=== PATIENT | female | born 2000 | race American Indian/Alaskan Native ===

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

== ENCOUNTER 2018-04-05 13:22 | Emergency (ER) | payer MEDICAID, SELFPAY ==
[2018-04-05 13:11] VITALS: BP 131/71
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
[~2018-04-05 13:22] MED LIST changes: +Acetaminophen 325 MG Tab PO ONE; -Acetaminophen 325 MG Tab PO PRN; +Bacitracin Oint 1 GM U/D Packet TOP ONE; -Carboprost Tromethamine 250 MCG/1 ML Amp IM PRN; -Lactated Ringers 500 ML IV ONE; +Lidocaine 1% 30 ML SDV INJECT ONE; -Lidocaine 1% 30 ML SDV INJECT PRN; -Methylergonovine 0.2 MG/1 ML Amp IM PRN; -Misoprostol 400 MCG (4 X 100 MCG TAB) RECTAL PRN; -Ondansetron 4 MG/2 ML SDV IV PRN; -Sodium Chloride 0.9% 10 ML Syringe FLUSH PRN
== END 2018-04-05 13:38 | disposition home or self-care (01) ==
LOC: DL.ED 13:22
DX: S01.81XA Laceration without foreign body of other part of head, initial encounter (principal); S50.11XA Contusion of right forearm, initial encounter; Y04.8XXA Assault by other bodily force, initial encounter; Y07.03 Male partner, perpetrator of maltreatment and neglect
CPT/HCPCS: 12013; 70450; 70486; 72125; 73090; 99284; A9270; J2001; 12011

== ENCOUNTER 2020-01-13 06:05 | Inpatient (IN) | payer MEDICAID ==
[~2020-01-13 06:05] MED LIST changes: -Acetaminophen 325 MG Tab PO ONE; +Acetaminophen 325 MG Tab PO PRN; -Bacitracin Oint 1 GM U/D Packet TOP ONE; +Carboprost Tromethamine 250 MCG/1 ML Amp IM PRN; +Citric Acid/Sodium Citrate Solution 30 ML Cup PO ONE; +Docusate Sodium 100 MG Cap PO PRN; -Lidocaine 1% 30 ML SDV INJECT ONE; +Methylergonovine 0.2 MG/1 ML Amp IM PRN; +Misoprostol 400 MCG (4 X 100 MCG TAB) RECTAL PRN; +Naloxone 2 MG/2 ML Syringe IVPUSH PRN; +Ondansetron 4 MG/2 ML SDV IVPUSH PRN; +Oxytocin/Normal Saline 30 UNIT/500 ML BAG IV SCH; +Tranexamic Acid 1,000 MG in Sodium Chloride 0.9% 100 ML IV PRN; +ceFAZolin 2 GM in Premix Bag 1 BAG IV ONE; +diphenhydrAMINE 50 MG/ML SDV IVPUSH PRN; +ePHEDrine 50 MG/ML SDV IVPUSH PRN
[2020-01-13] MEDS: Lactated Ringers 1,000 ML IV SCH ×2 (06:20→06:49)
[2020-01-13] MEDS ORDERED: Oxytocin/Normal Saline 60 UNIT/1,000 ML BAG ONE (07:04)
[2020-01-13] MEDS ORDERED: Citric Acid/Sodium Citrate Solution 30 ML Cup ONE (07:15)
[2020-01-13] MEDS ORDERED: Misoprostol 400 MCG (4 X 100 MCG TAB) ONE (08:04)
[2020-01-13] MEDS ORDERED: Methylergonovine 0.2 MG/1 ML Amp ONE (08:04)
--- NOTE | 2020-01-13 08:13 | OBOUT ---
DATE: 01/13/2020 TIME: 6:24 to 6:44. REASONS FOR NONSTRESS TEST: 1. Intrauterine at 39 weeks by a 16-1/7-week ultrasound. 2. Previous , requests repeat low-transverse . 3. Placental nonuniform echotexture on an ultrasound following serially. 4. GBS positive. 5. History of anemia with hemoglobin 10.0 upon admission. 6. History of urine drug screen positive for THC, [facility]-IAction[facility] pending. 7. G2, P1-0-0-1. NONSTRESS TEST INTERPRETATION: During this time period, heart tone baseline is approximately 125 and at least two 15 x 15 beats per minute accelerations, making this strip reactive as well as reassuring. Tocometer reveals potential of 1 contraction during this time. VITAL SIGNS: Blood pressure 139/68, heart rate 70, and temperature 98. ASSESSMENT: 1. Nonstress test, reactive as well as reassuring. 2. Tocometer with contraction. PLAN: Please see the H and P done through [employer]. For this, records were called for, reviewed, and supplemented by patient history as well as review of systems reviewed and felt to be contributory as noted. We will proceed to the OR as soon as crew is ready and available. The patient understands and agrees with the above treatment plan. [facility] /[id number]
--- NOTE | 2020-01-13 09:50 | US ---
PROCEDURE INFORMATION: Exam: US Pelvis Limited, Transabdominal Exam date and time: 01/13/2020 9:18 AM Age: 19 years old Clinical indication: Other: See below; Prior surgery; Surgery date: Post-operative (0-2 days); Patient HX: Post op this am. Uterus is displaced to maternal left. Pelvic area increasing in size rlq ? internal bleeding; Additional info: Excessive post op blood loss TECHNIQUE: Imaging protocol: Real-time transabdominal pelvic ultrasound with image documentation. Limited exam. COMPARISON: No relevant prior studies available. FINDINGS: Just to the right of midline and abutting the margin of the left-sided uterus there is an inhomogeneous mass within the pelvis measuring 14.5 x 12.5 cm. No free fluid is noted. There is a small degree of layering complex fluid within the central portion of the mass but no discernible internal color-flow Doppler signal. No intrauterine fluid. IMPRESSION: Intra-abdominal hematoma 12.4 x 14.5 cm.
[2020-01-13] MEDS ORDERED: Oxytocin/Normal Saline 30 UNIT/500 ML BAG IV ONE (10:03)
--- NOTE | 2020-01-13 10:07 | PN ---
DATE: 01/13/2020 Urine drug screen positive for THC. Blood type O positive. After delivery, review of placenta was done with Dr. Jefferson that did reveal in the center portion of the placenta a yellowish approximately about 3 cm in diameter lesion versus 2nd type sac. This was cut open and revealed yellow material underneath it. No exudate was noted. I suspect this was related to the uniform echotexture that was noted on the ultrasound. PLAN: At this point in time, we will continue to follow clinically and closely. [facility] /[id number] MTDD
[2020-01-13 10:55] VITALS: PULSE 108
[2020-01-13] MEDS: Prenatal Multivitamin with Calcium/Folic Acid/Iron Tab PO SCH (11:33)
[2020-01-13] MEDS: Simethicone 80 MG Tab.Chew PO SCH (11:34)
[2020-01-13 11:57] VITALS: BP 91/39
[2020-01-13] MEDS ORDERED: Acetaminophen/oxyCODONE 325-5 MG Tab PO PRN ×2 (12:00)
--- NOTE | 2020-01-13 12:02 | PN ---
DATE: 01/13/2020 SUBJECTIVE: The patient has been given some pain meds/denies any pain currently. I was called over back to the PACU. The patient had received Methergine in the OR, Cytotec in the PACU, and some TXA in the PACU shortly after arriving there. She was followed closely. She did have some blood pressures that decreased as well as a heart rate in the 100s and started appearing pale. Subsequently, a type and cross match for 2 units of blood was called for, and in urgency we will give her blood products immediately with PRBC-2 units. At this point in time, she has now received at least 4 L of fluid, ephedrine per [facility]. OBJECTIVE: General: The patient appears pale. Answers questions appropriately. Abdomen: Firm uterus felt on the left side of the umbilicus at approximately +1 position. Right lower quadrant region does reveal a questionable mass versus other. Genitourinary: Vaginal exam, cervix is very high. Feels to be a finger tip to 1 cm dilated. Minimal clot noted in the vaginal area. Stat ultrasound was called for right lower quadrant region. Does reveal suspected hematoma and this was reviewed by my eyes as well. ASSESSMENT AND PLAN: hemorrhage with hypovolemic versus hemorrhagic nearing shock. I did discuss with the patient with limited blood supply in the hospital, recommendation to proceed to transfer to higher level of care. I did discuss this case with Dr. Wilson, [facility] INS[facility]OR on-call in [place]. She has agreed graciously to accept transfer, and at current time of dictation working on getting transfer team here to transfer the patient. The patient understands and agrees to above treatment plan, and her boyfriend, Sarah Oakley, was updated in terms of treatment plan as well. He understands and agrees and wished to proceed with this. We will proceed with blood transfusion for now and then type and cross match for couple of more units if needed Continue with intravenous fluid resuscitation and work on transfer to a level of higher care at this point in time. At this time, more then 30 minutes has been spent with patient in critical care management and evaluation. [facility] /[id number] [facility]ITALHernesto
--- NOTE | 2020-01-13 13:20 | OR ---
DATE: 01/13/2020 PREOPERATIVE DIAGNOSES: 1. Intrauterine at 39 weeks by 16-1/7 weeks' ultrasound. 2. Previous section x1, request repeat low transverse section. 3. Placenta, nonuniform echotexture on ultrasound. 4. Group B Streptococcus positive. 5. Anemia with hemoglobin 10.0 upon admission. 6. History of urine drug screen positive for THC at [facility]. 7. G2, P 1-0-0-1. POSTOPERATIVE DIAGNOSES: 1. Intrauterine at 39 weeks by 16-1/7 weeks' ultrasound, delivered. 2. Previous section x1, request repeat low transverse section. 3. Placenta, nonuniform echotexture on ultrasound. 4. Group B Streptococcus positive. 5. Anemia with hemoglobin 10.0 upon admission. 6. History of urine drug screen positive for THC at [facility]. 7. G2, P 1-0-0-1. 8. Difficulty delivering vertex, requiring vacuum-assisted delivery. 9. Uterine atony, requiring Methergine in the operating room and will be given Cytotec in the PACU. PROCEDURE PERFORMED: Repeat low transverse section with vacuum- assisted delivery. DERRICK BOAT RUNNER: Rufina Dowd MD ANESTHESIA: Spinal. ESTIMATED BLOOD LOSS: 750 mL. IV FLUIDS: 1500 mL. URINE OUTPUT: 500 mL and clear. START: 0756. UTERINE INCISION: 0759. DELIVERY: 0800. STOP: 8:22. FINDINGS: Female. score of 9 and 10. Weight pending. DESCRIPTION OF PROCEDURE: After proper consent was obtained, the patient was brought to the operating room where spinal anesthetic was administered. Naik was placed in the preop under sterile conditions. Abdomen was prepped and draped in normal sterile fashion. The patient was placed in supine position with left lateral tilt. A skin incision was then made over the lower abdomen in transverse Pfannenstiel- type fashion over previous scar. This was carried down to the fascia and scored in the midline. Subcutaneous tissue was raked laterally with Eugene retractor. Fascial incision was extended in transverse fashion using curved Mcgowan's. Abdulaziz clamps x2 were used to grasp the superior aspect of the fascia. Rectus muscles were dissected from the fascia using sharp and blunt technique. In a similar fashion, Abdulaziz clamps x2 were used to grasp the inferior portion of the incision, and rectus and pyramidalis muscles were dissected from the fascia using sharp and blunt technique. Rectus muscles were in the midline with blunt technique. Abdominal cavity was entered in blunt technique. Incision was extended superiorly and inferiorly with blunt technique. Vic O large retractor was then introduced and used. Vesicouterine peritoneum was identified, incised in transverse fashion, and bladder flap was made digitally. Curvilinear incision made on lower uterine segment at 0759 hours. Uterus was entered sharply. Clear fluid returned. Uterine incision was then extended in transverse fashion using blunt technique. There was difficulty delivering the vertex through the incision. Subsequently, Kiwi vacuum was called for, applied to the vertex, pumped up to the green, and with gentle pulling and fundal pressure, vertex was delivered, vacuum was disengaged. Rest of the infant delivered with minimal difficulty. Mouth and nares were suctioned. Cord was doubly clamped and cut, and infant was brought over to the team. Then, approximately 10 mL cord blood was obtained for labs. Placenta was then delivered with gentle cord traction and fundal massage. Uterine cavity was then cleared of all blood clots and debris, and because of uterine atony, uterus was exteriorized. Lema clamps were then used to grasp the uterine incision, this was closed in a running locked fashion and tied at lateral margins with 1-0 Vicryl. Right lateral portion of the incision revealed bleeding. Multiple ozylac-jn-lhffo stitches were applied over this area with 1- 0 Vicryl and hemostasis was reassured. With placing stitches, posterior uterus was evaluated and no bleeding or lacerations noted. During this time, uterine atony was noted and Methergine was called for and given. Cytotec was also grabbed and available in the room. Subsequently uterine atony was resolving. First inspection of the uterine incision revealed hemostasis. A second time posterior uterus was evaluated and no bleeding or lacerations noted. Uterus was returned to the abdomen and second inspection of the uterine incision revealed hemostasis. Paracolic gutters were then cleared of all blood clots and debris with lap sponge. Anterior cul-de-sac was irrigated copiously and all blood clots were removed. Third and final inspection of the uterine incision and anterior cul-de- sac revealed hemostasis. Rectus muscles were then reapproximated in midline with abukoo-yh-vaeyq stitch using 1-0 Vicryl. Subfascial tissues were found to be hemostatic. Fascia was closed in a running fashion and tied at lateral margins with 0 looped PDS. Subcutaneous tissue irrigated copiously, hemostasis reassured. Skin was reapproximated with medium marisa. Sterile Aquacel dressing was applied. Uterine fundus was semi-firm and massaged at conclusion of case at the umbilicus. Cytotec will be given in the PACU. No immediate complications were noted. Sponge, lap, and needle counts were correct. The patient received 2 g of Ancef preoperatively, Pitocin per protocol, and received Toradol at conclusion of case for pain control. Mother and are currently stable at time of dictation. [facility] /[id number] RAQUEL
[2020-01-13] MEDS ORDERED: Ketorolac 30 MG/ML SDV IVPUSH SCH (14:00)
--- NOTE | 2020-01-13 19:30 | DISCH ---
ADMIT DIAGNOSES: 1. Intrauterine at 39 weeks by 16-1/7 week ultrasound. 2. Previous section x1. Request repeat low transverse section. 3. Placental nonuniform echo texture on ultrasound. 4. Group B Streptococcus positive. 5. History of anemia. Hemoglobin 10.0 upon admission. 6. History of urine drug screen positive for THC. 7. G2, P1-0-0-1. DISCHARGE DIAGNOSES: 1. Intrauterine at 39 weeks by 16-1/7 week ultrasound. 2. Previous section x1. Request repeat low transverse section. 3. Placental nonuniform echo texture on ultrasound. 4. Group B Streptococcus positive. 5. History of anemia. Hemoglobin 10.0 upon admission. 6. History of urine drug screen positive for THC. 7. G2, P1-0-0-1. 8. Difficulty delivering vertex, requiring kiwi vacuum assistance. 9. Uterine atony requiring Methergine x1 in the OR and Cytotec placed in the PACU. 10. hemorrhage with atony and bleeding as noted as above and below. 11.Hypovolemic versus hemorrhagic shock, nearing shock. 12.Hematoma on ultrasound, right lower quadrant area. HISTORY OF PRESENT ILLNESS: Please see H and P. SUMMARY OF HOSPITAL COURSE: The patient on the above date with above diagnoses underwent repeat low transverse with NST performed prior. This was done under spinal with an EBL initially 750 mL, yielding a female with scores 9 and 10, weighing 7 pounds 8 ounces. In the operating room, she did have uterine atony, requiring Methergine x1 and then Cytotec that was placed in the PACU due to some atony and on the right side of her uterine incision did require multiple [id number]-ed-[id number] stitches and hemostasis reassured prior to closure. Please see op report for further details. Upon arrival in the PACU shortly thereafter, she appeared pale, decreasing blood pressures, increasing heart rates. Subsequently, I was called over. Please see other notes in regard to this. Essentially, was found to have a right lower quadrant hematoma with shifting of the fundus to the left. A vaginal exam reveals to be approximately 1 cm dilated with minimal vaginal bleeding and suspected hemorrhage with hemorrhagic versus hypovolemic shock nearing shock state. She subsequently resuscitated with IV fluids, ephedrine, and blood transfusions-2 units called for, and transferred to higher level care to [facility] via [facility] with Dr. Wilson, [employer] accepting. Please see other notes for further details and discharge evaluation as well as nurses notes for vitals. Of note, a stat CBC was done prior to the patient leaving. Hemoglobin was 6.3 after fluid resuscitation had been given. CONDITION ON DISCHARGE COMPARED TO CONDITION ON ADMISSION: Serious and guarded. DISCHARGE INSTRUCTIONS: Being transferred to [facility] via [facility] as soon as they are ready. Over half hour was spent in ICU type time in regard to this patient with evaluation, management, and serial evaluations. [facility] /[id number] RAQUEL
[2020-01-14] MEDS ORDERED: Ibuprofen 800 MG Tab PO PRN (10:00)
== END 2020-01-13 10:04 | DRG 786 ==
LOC: DL.OB 06:05 → OBSVTOIN 08:00
PROVIDERS: ADMIT Family Medicine; ATTEND Family Medicine
PROC: 10D00Z1 Extraction of Products of Conception, Low, Open Approach (ICD-10-PCS; principal; 2020-01-13)
DX: O34.211 Maternal care for low transverse scar from previous cesarean delivery (principal); O75.1 Shock during or following labor and delivery; O72.1 Other immediate postpartum hemorrhage; O71.7 Obstetric hematoma of pelvis; Z3A.39 39 weeks gestation of pregnancy; Z37.0 Single live birth; O99.824 Streptococcus B carrier state complicating childbirth; O99.02 Anemia complicating childbirth; D64.9 Anemia, unspecified; Z20.828 Contact with and (suspected) exposure to other viral communicable diseases
CPT/HCPCS: 01961; 36415; 36430; 76857; 80305-QW; 85014; 85018; 85027; 86850; 86900; 86901; 86920; 86922; A9270-GY; J0690; J2590; J7120; P9016; U0002

== ENCOUNTER 2022-12-01 10:12 | Emergency (ER) | payer MEDICAID | END 2022-12-01 11:06 | disposition left against medical advice (07) | LOC: DL.ED 10:12 | DX: Z53.21 Procedure and treatment not carried out due to patient leaving prior to being seen by health care provider (principal) ==

== ENCOUNTER 2023-04-11 07:26 | Emergency (ER) | payer MEDICAID ==
[2023-04-11 09:23] VITALS: BP 125/67; PULSE 83
== END 2023-04-11 09:33 | disposition home or self-care (01) ==
LOC: DL.ED 07:26
DX: O21.9 Vomiting of pregnancy, unspecified (principal); O99.331 Smoking (tobacco) complicating pregnancy, first trimester; F17.210 Nicotine dependence, cigarettes, uncomplicated; Z79.899 Other long term (current) drug therapy; Z88.0 Allergy status to penicillin; Z3A.01 Less than 8 weeks gestation of pregnancy
CPT/HCPCS: 36415; 84702; 99284